=== PATIENT | male | born 1945 | race Caucasian/White ===

== ENCOUNTER → 2016-11-11 | Outpatient (CLI) | payer OTHER, MEDICARE ==
[~2016-11-11] MED LIST: ASPIRIN325 PO; NEXIUM40 MG PO; SUDAFED30 MG PO
== END ==
LOC: MRI 08:39
DX: K76.9 Liver disease, unspecified (principal); R10.11 Right upper quadrant pain

== ENCOUNTER → 2016-12-05 | Outpatient (CLI) | payer OTHER, MEDICARE | LOC: MRI 09:03 | DX: K76.9 Liver disease, unspecified (principal); R10.11 Right upper quadrant pain ==

== ENCOUNTER → 2017-11-15 | Outpatient (CLI) | payer OTHER, MEDICARE | LOC: MRI 06:11 | DX: M48.07 Spinal stenosis, lumbosacral region (principal); M51.36 Other intervertebral disc degeneration, lumbar region ==

== ENCOUNTER → 2019-01-01 | Outpatient (CLI) | payer OTHER, MEDICARE | LOC: CAT 10:53 | DX: J32.9 Chronic sinusitis, unspecified (principal) ==

== ENCOUNTER → 2019-02-15 | Outpatient (CLI) | payer OTHER, MEDICARE | LOC: ULTRA 12:48 | DX: N43.3 Hydrocele, unspecified (principal); J98.11 Atelectasis ==

== ENCOUNTER → 2020-04-14 | Outpatient (CLI) | payer OTHER, MEDICARE | LOC: SJCVC 10:15 | PROVIDERS: ATTEND Internal Medicine | DX: R94.31 Abnormal electrocardiogram [ECG] [EKG] (principal); I45.10 Unspecified right bundle-branch block; R00.1 Bradycardia, unspecified; Z79.899 Other long term (current) drug therapy ==

== ENCOUNTER → 2020-05-06 | Outpatient (CLI) | payer OTHER, MEDICARE | LOC: SJCVCIMAG 07:56 | PROVIDERS: ATTEND Internal Medicine | DX: I08.8 Other rheumatic multiple valve diseases (principal) ==

== ENCOUNTER → 2020-05-08 | Outpatient (CLI) | payer OTHER, MEDICARE | LOC: SJCVC 10:08 | PROVIDERS: ATTEND Internal Medicine | DX: I11.9 Hypertensive heart disease without heart failure (principal); R00.2 Palpitations; G25.0 Essential tremor; Z82.49 Family history of ischemic heart disease and other diseases of the circulatory system; Z79.899 Other long term (current) drug therapy ==

== ENCOUNTER → 2020-06-05 | Outpatient (CLI) | payer OTHER, MEDICARE | LOC: SJCVC 09:42 | PROVIDERS: ATTEND Internal Medicine | DX: R00.2 Palpitations (principal); I10 Essential (primary) hypertension; I47.1 Supraventricular tachycardia; I45.10 Unspecified right bundle-branch block; Z79.82 Long term (current) use of aspirin; Z79.899 Other long term (current) drug therapy ==